=== PATIENT | male | born 1975 | race African-American/Black ===

== ENCOUNTER 2017-11-29 12:38 | Outpatient (CLI) | payer OTHER ==
--- NOTE | 2017-11-29 16:41 | MRI Report ---
EXAM: RIGHT KNEE MRI WITHOUT CONTRAST EXAM DATE: 11/29/2017 01:22 PM. CLINICAL HISTORY: Patellar tendinitis, right knee. COMPARISON: 04/03/2016. TECHNIQUE: Multiplanar, multisequence T1-weighted and fluid-sensitive sequences of the knee without c ontrast. Other: None. FINDINGS: Bones: No fractures or subluxations. No marrow edema. No bone lesions. Articular Cartilage: Unremarkable. Medial Meniscus: The medial meniscus is intact. Lateral Meniscus: The lateral meniscus is intact. Cruciate Ligaments: The anterior and posterior cruciate ligaments are intact. Collateral Ligaments: The medial collateral and lateral collateral ligamentous structures are intact. Tendons: As before, the proximal patellar tendon is abnormally thickened and shows some increased T2 signal. There is a focal area of calcification within the proximal lateral patellar tendon, similar t o previous. Some surrounding soft tissue swelling is also noted. Musculature: No edema or fatty atrophy. Other: No effusion. No popliteal cyst. No loose bodies. The medial and lateral retinacula are intact . Some subcutaneous thickening is seen over the anterior aspect of the lower patella. Some edema also is seen in Hoffa's fat pad. IMPRESSION: 1. Menisci, cruciates and collaterals appear unremarkable. 2. No significant cartilaginous defects. 3. As before, proximal patellar tendinitis is present, some calcification is seen in the proximal pat ellar tendon. The amount of surrounding inflammation in the adjacent soft tissues shows improvement s ramandeep the study from 2015. RADI MUSCULOSKELETAL RADIOLOGY SECTION Referring Provider Line: [phone] SITE ID: [id number]
== END 2017-11-29 12:39 | disposition home or self-care (01) ==
LOC: DI 12:38
PROVIDERS: ATTEND Orthopaedic Surgery
DX: M76.51 Patellar tendinitis, right knee (principal)

== ENCOUNTER 2019-10-16 14:42 | Outpatient (CLI) | payer OTHER ==
--- NOTE | 2019-10-16 16:10 | SLEEP CARE CONSULTATION ---
Information from patient questionnaire entered by Marcela Keenan. I have reviewed and concur with the information entered by Marcela Keenan. This document represents the service I personally performed and the decisions made by me, Perla Ramirez MD, [facility]. History of Present Illness Reason for Visit: New patient Chief Complaint: reports: Fatigue, Frequent awakenings at night Duration of Symptoms: 7 years Usual bedtime: 7:30 pm Time it takes to fall asleep: 2 hours Snores at night: Yes Observed to quit breathing while asleep: No Sleeps alone due to snoring: No Number of times waking at night: 3 Toss, Turn, or Twitch while sleeping: Yes Recalls having dreams: No Usually gets out of bed at: 5:30 am Feels refreshed in the morning: No Morning headache: No Sleepy or fatigued during the day: Yes Ever fallen asleep while driving: No Takes day naps: No Dreams during day naps: No Prior sleep studies: No Additional HPI information: I had the pleasure of seeing Mr. García today regarding the possibility of him having a sleep disorder. As you know, he is a 44 year old gentleman who complains of frequent awakenings, and persistent fatigue for the past 7 years. The patient tells me that he normally goes to bed around 7:30 pm, and it takes him approximately 2 hours to fall asleep. He tried a sleep aid for a month. He has been told that he snores loudly and irregularly at night. He has never been observed to stop breathing in his sleep. His can still sleep in the same bed. He can recall waking up on the average of 3 times during the night. Most of the time he wakes up because of no apparent reason. He has never awakened because of his own snoring, choking, or having to gasp for air. There is a lot of tossing and turning in his sleep. No somniloquy (sleep talking) or somnambulism (sleep walking). Generally there is no recollection of dreams. In the morning he usually gets up out of the bed around 5:30 a.m. not feeling refreshed nor rested. He usually does not have a morning headache. During the day he complains of feeling fatigued. His score on [place] Sleepiness Scale is 6 out of 24. He has never fallen asleep while driving nor has had any accident due to sleepiness. He usually does not take naps during the day. Upon falling asleep during the day he denies having vivid dreams. He has never had sleep paralysis, experienced cataplexy or symptoms of restless leg syndrome. He denies having impaired concentration during the day. - Parasomnia Symptoms Ever been unable to move upon waking from sleep: No Ever felt weak in the knees when startled or emotional: No Bothered by creepy, crawly, restless sensations in legs: No Problems with memory or concentration: No Subjective Initial [place] Sleepiness Scale score: 6 Past Medical History Past Medical History: reports: Hypertension Social History The patient's occupation is a [employer]. Patient is and lives in [place]. Have you smoked in the past 12 months: No Alcohol use: No Caffeine use: No Family History Family history of sleep disordered breathing: No Allergies and Home Medications Drug allergies reviewed: Yes (NKDA) Home medication list reviewed: Yes (lisinopril) Review of Systems Cardiovascular: reports: high blood pressure Respiratory: denies: shortness of breath, wheeze, sputum production, chronic cough, other Gastrointestinal: denies: heartburn, difficulty swallowing, nausea, vomitting, diarrhea, abdominal pain, other Urinary: denies: incontinence, frequency, urgency, impotence, other Neurological: denies: headaches, seizure, head trauma, disorientation, speech dysfunction, gait or balance problems, fainting or unconsciousness, other Psychiatric: denies: Attention Deficit Hyperactivity, anxiety, depression, mood disorder, claustrophobia, other Ear/Nose/Throat: denies: nasal congestion, sinus problems, nose bleeds, dry mouth/throat, hoarseness, injury to nose, tonsillectomy, wisdom teeth removed, other Endocrine: denies: thyroid disease, history of goiter, sluggishness, too hot or cold, excessive thirst, increased appetite, increased urination, unexplained weakness, other Musculoskeletal: denies: joint pain, neck pain, back pain, joint swelling, muscle pain or cramping, mobility problems, other Immunologic: denies: sneezing, rash, itching, allergies to food or environment, other Physical Exam Vital signs obtained and entered by: Physical exam was deferred due to the COVID-19 pandemic. Height: 6 ft Weight: 230 lb Body Mass Index: 31.1 BMI Classification: Obese Impression and Plan IMPRESSION: 1. Obstructive Sleep Apnea-Hypopnea Syndrome, as suggested by history of loud and irregular snoring, frequent awakenings during the night, unrefreshed sleep, and hypertension. Narrow oropharynx and obesity are common predisposing factors for obstructive sleep apnea-hypopnea syndrome. Pathophysiology of sleep- disordered breathing was discussed. I recommend proceeding to polysomnography t o confirm the diagnosis and to assess severity. If he has significant sleep disordered breathing, a manual CPAP titration study will also be performed to find the optimal treatment pressure. I informed the patient of what the sleep studies involve and after some discussion, he agreed to proceed. Plan: 1. Schedule an in-laboratory polysomnography 2. Avoid long distance driving or when feeling sleepy. 3. Avoid alcohol, sedative and muscle relaxant around bedtime. 4. Attempt to lose weight. 5. Return in 1 to 2 weeks after the study to discuss results and initiate t herapy. I spent 100% of this visit face to face with the patient with greater than 50% of this was spent time counseling the patient and coordination of care.
== END 2019-10-16 14:43 | disposition home or self-care (01) ==
LOC: SC 14:42
PROVIDERS: ATTEND Internal Medicine Pulmonary Disease
DX: R06.83 Snoring (principal); G47.8 Other sleep disorders; I10 Essential (primary) hypertension; E66.9 Obesity, unspecified; Z68.31 Body mass index [BMI] 31.0-31.9, adult
CPT/HCPCS: 99203; 99212

== ENCOUNTER 2019-10-26 19:32 | Outpatient (CLI) | payer OTHER | END 2019-10-26 19:33 | disposition home or self-care (01) | LOC: SC 19:32 | PROVIDERS: ATTEND Internal Medicine Pulmonary Disease | DX: G47.33 Obstructive sleep apnea (adult) (pediatric) (principal); E66.3 Overweight; Z68.31 Body mass index [BMI] 31.0-31.9, adult | CPT/HCPCS: 95810 ==

== ENCOUNTER 2019-11-06 16:54 | Outpatient (CLI) | payer OTHER ==
--- NOTE | 2019-11-06 13:34 | SLEEP CARE CONSULTATION ---
Information from patient questionnaire entered by Bri Anaya. I have reviewed and concur with the information entered by Bri Anaya. This document represents the service I personally performed and the decisions made by me, Perla Ramirez MD, [facility]. History of Present Illness Service Date and Time: 11/06/2019 1320 Initial [place] Sleepiness Scale score: 6 Additional HPI information: To minimize the risk of COVID-19 exposure, the patient has requested and consented to this video telemedicine visit. The patient also agrees to having his insurance billed. HPI: Mr. García was called for a follow up of the sleep study he had on 10/26/2019. The polysomnography showed that the patient had reduced sleep efficiency due to a prolonged awakening in the second half of the night. Despite moderate sleep fragmentation,, the sleep architecture was normal. Respiratory monitoring showed mild obstructive sleep apnea-hypopnea (AHI = 8.4) associated with frequent arousals, oxyhemoglobin desaturation and mild hypoxia (bhupinder oxygen saturation of 82%). The respiratory events occurred mainly during REM sleep. The patient did not sleep supine during this study (supine AHI = 0.0; non-supine = 8.44). Snore was moderate to loud in intensity. There was no significant periodic leg movement of sleep. Cardiac rhythm was normal sinus rhythm without significant arrhythmia. No abnormal behavior (parasomnia) observed during the night. The patient was informed of these findings. I explained to him the pathophysiology behind obstructive sleep apnea. We then spent quite a bit of time discussing different treatment options. For mild obstructive sleep apnea, surgery and oral appliance are alternatives to nasal CPAP therapy but in moderate or severe cases, nasal CPAP is the most effective and reliable treatment. Weight loss in an obese individual is strongly recommended. After some discussion, he opted to go with the nasal CPAP therapy. I explained to him how CPAP machine works and what to expect when using the machine. He is encouraged to use CPAP every night especially in the first 2 to 3 nights in order to get used to it. He should call his CPAP supplier or me to discuss any mechanical problem that may occur. If he snores or feels like he is not getting enough air from the machine, he should notify me and I will increase the pressure. Allergies and Home Medications Drug allergies reviewed: Yes Home medication list reviewed: Yes Review of Systems Review of systems same as previous: Yes Physical Exam Height: 6 ft Impression and Plan IMPRESSION: 1. Obstructive Sleep Apnea-Hypopnea Syndrome, mild, associated with mild hypoxemia and sleep fragmentation. Possibly, this is the cause of the patients symptoms of unrefreshed sleep, and excessive daytime sleepiness. As mentioned above, the patient will be started on an autoCPAP set at 5 - 15 cmH2O. Depending on his response and compliance he may be brought back for an overnight CPAP titration study (no studies are being performed due to COVID-19). PLAN: 1. Prescription made for an autoCPAP, heated humidifier, and related supplies. 2. Attempt to lose weight and avoid alcohol consumption near bedtime. 3. Return for follow up after one month on the CPAP. Visit Type: Telehealth Video Video Type: [place] Location of Provider: Home Patient agrees and consents to this telehealth visit type: Yes Time Spent with Patient (minutes): 15 Provider Statement: I spent 100% of the Telehealth Video Call with the patient with greater than 50% spent counseling the patient and coordination of care.
== END 2019-11-06 16:55 | disposition home or self-care (01) ==
LOC: SC 16:54
PROVIDERS: ATTEND Internal Medicine Pulmonary Disease
DX: G47.33 Obstructive sleep apnea (adult) (pediatric) (principal)
CPT/HCPCS: 99212; 99213

== ENCOUNTER 2020-01-24 09:20 | Outpatient (CLI) | payer OTHER ==
[2020-01-24 09:33] VITALS: BP 120/78
--- NOTE | 2020-01-24 09:33 | SLEEP CARE CONSULTATION ---
Information from patient questionnaire entered by Marcela Keenan. I have reviewed and concur with the information entered by Marcela Keenan. This document represents the service I personally performed and the decisions made by me, Nola Enamorado, RN, MSN, [employer]. History of Present Illness Service Date and Time: 01/24/2020919 Previous diagnosis: Mild, Obstructive Sleep Apnea-Hypopnea Syndrome AHI: 8.4 (in 2019) Reason for follow up: first compliance Equipment type: CPAP Equipment obtained from: Other ([facility]AP [facility]) Mask style: Nasal pillows Backup mask available: Yes (full face ) Last cushion change: no new supplies yet CPAP Compliance Data - Data Reviewed with Patient Average duration of nightly device use: 4.3 Compliance rate %: 90 Current pressure setting (cmH2O): 5-15 Humidity settin Heated hose settin Average residual AHI: 6.6 (90% pressure average 9.6cmH20) Central apnea: 1.0 Obstructive apnea: 1.1 Hypopnea: 4.5 Average large leak: 0 Subjective Patient concerns: reports: dry mouth, nose, throat ( mild mouth dryness about 2 times a week. ), other (has difficulty sleeping explained as cannot sleep longer periods than a few hours then wake up and can take 2 horus to return to sleep. He lies there trying-no pain or things on mind ). denies: aerophagia, mask discomfort, air blowing in eyes, mask leak noise, condensation in mask/hose, nasal congestion, epistaxis Observed to snore while using device: No Current pressure setting perceived as: comfortable On therapy, patient: reports: other (snoring resolved). denies: drowsiness while driving Initial [place] Sleepiness Scale score: 6 (in 2019) Current [place] Sleepiness Scale score: 6 Allergies and Home Medications Known drug allergies: No Home medication list reviewed: No (no changes noted ) Review of Systems Review of systems same as previous: Yes Physical Exam Blood Pressure: 120/78 Cuff size: long Heart Rate: 79 O2 Saturation: 97 Height: 6 ft Weight: 246 lb 9.6 oz (with boots and fatigues ) Body Mass Index: 33.4 BMI Classification: Obese Impression and Plan 1. Obstructive Sleep Apnea-Hypopnea Syndrome, mild, with good treatment compliance and mild elevation of residual AHI. On CPAP therapy, the patient has better sleep quality and is more rested overall. The patients pressure will be changed to autoCPAP 10-15 cmH20 For elevation of residual AHI. Patient advised to contact me if pressure change is uncomfortable so that it can be adjusted. Goals for apnea control discussed.Oral dryness can be reduced by adjusting humidity setting higher or heated hose lower or by adjusting both settings. Printed instructions given on how to change humidity and heated hose settings with rationale explaining why to change. Oral dryness can also be reduced by reducing mask leaks. Patient advised that if chronic oral dryness can affect dental health and advised to follow up with dentist and to see if oral dryness products beneficial. Patient's apnea severity and rationale for treatment to reduce apnea, improve sleep quality and reduce cardiovascular and cerebrovascular events was reviewed. I also reviewed the benefit of consistent device use of CPAP for hypertension, 2.Insomnia, unknown reason, reported chronic 10 years as difficulty maintaining sleep. Instead of staying in bed trying to go to sleep, he is advised to leave room and engage in quiet activity such as reading. He is also to stop looking at clock when he awakens as it can be alerting and instead to set alarm and cover clock. We talked about recognizing we all wake for positioning,noise and bathroom the garcia is to be able to fall back to sleep easily. Currently he is obtaining 4-5 hours sleep a night. The goal is to strive for a minimum of 7 as most people require 7-9 hours of sleep for optimal mental and physical function and less than 5-6 hours can increase health risks. It is hoped that with more sleep he will get more benefit from CPAP. A sleep diary will be completed. [facility] How to sleep better pamphlet given and reviewed. * * Changeauto CPAP pressure to 10-15 cmH2O * Implement methods to reduce insomnia and oral dryness * Sleep diaries - 2 weeks * Notify me if snoring with mask or feeling that the pressure is too much or too little * Attempt to lose weight * Call this office if any problems using CPAP * Return for follow up in 1-2 months , or sooner if concerns arise Visit Type: In Office Time Spent with Patient (minutes): 30 Provider Statement: I spent 100% of the Face to Face Visit with the patient with greater than 50% spent counseling the patient and coordination of care.
== END 2020-01-24 09:21 | disposition home or self-care (01) ==
LOC: SC 09:20
PROVIDERS: ATTEND Nurse Practitioner Family
DX: G47.33 Obstructive sleep apnea (adult) (pediatric) (principal); G47.00 Insomnia, unspecified; E66.9 Obesity, unspecified; Z68.33 Body mass index [BMI] 33.0-33.9, adult
CPT/HCPCS: 99212; 99214

== ENCOUNTER 2020-04-23 09:42 | Outpatient (CLI) | payer OTHER ==
[2020-04-23 11:33] VITALS: BP 136/84
--- NOTE | 2020-04-23 11:33 | SLEEP CARE CONSULTATION ---
Information from patient questionnaire entered by Marcela Keenan. I have reviewed and concur with the information entered by Marcela Keenan. This document represents the service I personally performed and the decisions made by me, Nola Enamorado, RN, MSN, [employer] SCIENCE TECHNICIAN. History of Present Illness Service Date and Time: 04/23/2020 0942 Previous diagnosis: Mild, Obstructive Sleep Apnea-Hypopnea Syndrome AHI: 8.4 (in 2019) Reason for follow up: other (2 month with pressure change) Equipment type: CPAP Equipment obtained from: Other ([facility] -) Mask style: Nasal pillows Backup mask available: No (keep current mask as spare when replaced) Last cushion change: 1 month ago Prior sleep studies: Yes Year and Where: 2019 - [facility] Type of Sleep Study: Polysomnography HPI additional information: Dryness symptoms resolved with adjustment of heated hose and humidity. He continues to have insomnia with difficulty going to sleep. He goes to bed at 8:30pm and it takes 1-2 hours to fall asleep. He wakes at 5am. He completed sleep diaries but forgot to bring. He tried to going to bed later and did fall asleep quicker but has gone back to his old schedule. He stopped looking at clock but did not cover face of clock. He thinks he getting 6 hours of sleep a night. He is feeling rested intermittently. Sleep Study - Results Prior sleep studies: No CPAP Compliance Data - Data Reviewed with Patient Average duration of nightly device use: 4.7 Compliance rate %: 83.3 (60 days) Current pressure setting (cmH2O): 10-15 Humidity settin Heated hose settin Average residual AHI: 5.0 Central apnea: 1.9 Obstructive apnea: 1.3 Hypopnea: 1.8 Average large leak: 0 Subjective Patient concerns: reports: other (takes off mask after wakes to go to bathroom as feels it may be harder to go back to sleep.). denies: aerophagia, mask discomfort, air blowing in eyes, mask leak noise, condensation in mask/hose, nasal congestion, dry mouth, nose, throat, epistaxis Observed to snore while using device: No Current pressure setting perceived as: comfortable On therapy, patient: reports: sleeping better, awakening more refreshed, being more awake and alert during the day, more rested overall. denies: drowsiness while driving Initial [place] Sleepiness Scale score: 6 (in 2020) Current [place] Sleepiness Scale score: 6 Allergies and Home Medications Known drug allergies: No Home medication list reviewed: Yes (no changes ) Review of Systems Review of systems same as previous: Yes (no changes ) Physical Exam Blood Pressure: 136/84 Cuff size: long Heart Rate: 73 O2 Saturation: 96 Height: 6 ft (fatigues and boots ) Weight: 251 lb 6.4 oz Body Mass Index: 34.0 BMI Classification: Obese Impression and Plan 1. Obstructive Sleep Apnea-Hypopnea Syndrome, mild , with good treatment compliance and apnea control. On CPAP therapy, the patient has better sleep quality and is more rested overall. The residual AHI has reduced from 6.6 to 5. Since patient is planning on losing weight, I will not adjust mask further. Currently patients BMI is 34 obesity class . Obesity increases the risk of apnea, CPAP pressure requirements and overall health risks especially cardiovascular and diabetes. Thus patient is advised to lose weight. The BMI chart was reviewed. The patient would like to reduce to 225pounds bringing their BMI down to about 30. I emphasized losing central obesity with rationale discussed. Patient encouraged to discuss their weight loss goals with their PCP and consider a referral to a pill packer. The patient's CPAP pressure range should accommodate some weight loss. Symptoms to report for additional pressure adjustment discussed. I also discussed how significant weight loss may reduce a pnea enough that retesting may be indicated. Supply schedule questions answered. 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 He states he will have electricity so a CPAP battery is not needed. Patient's apnea severity and rationale for treatment to reduce apnea, improve sleep quality and reduce cardiovascular and cerebrovascular events was reviewed. I also reviewed the benefit of consistent device use of CPAP for hypertension. In addition, he is advised to use CPAP with all sleep for maximum benefit of treatment. Thus he is to put mask back on after using bathroom. 2. Insomnia, patient reports chronic insomnia of difficulty falling asleep.He is again advised to complete sleep diary to see if any other concerns but will be unable to return until after deployment so this will be deferred. Until then, he is to go to bed at 9:30pm rather than 8:30pm unless really tired. It was stressed he is only to go to bed if sleepy. I counseled him how he was going to bed too early at 8:30pm with a 5am wake up time. Most people required 7-8 hours of sleep and his difficulty going to sleep for 1- 2 hours shows he does not require more sleep but less than allowed. He is also restart leaving bedroom if unable to sleep after about 20 minutes and engage in quiet activity such as reading until tired enough to go back to bed. This is to associate bed with sleep not frustration to get to sleep. To acclimate more to mask use, so he can more easily go back to sleep using CPAP, he is to try using CPAP while watching TV or reading for 30 minutes for the next 2 weeks to see if better. I also advised him to cover the clock so not to be tempted to look at it when he gets up to bathroom or changes position. Cover clock * Continue auto CPAP pressure at 10-15 cmH2O * Implement methods to reduce insomnia and improve mask acclimation * Notify me if snoring with mask or feeling that the pressure is too much or too little * Attempt to lose weight * Call this office if any problems using CPAP * Return for follow up in 6 months after deployment , or sooner if concerns arise Counseling Topics: Spare mask, Weight loss health impact, Discuss weight with PCP Visit Type: In Office Time Spent with Patient (minutes): 40 Provider Statement: I spent 100% of the Face to Face Visit with the patient with greater than 50% spent counseling the patient and coordination of care.
== END 2020-04-23 09:43 | disposition home or self-care (01) ==
LOC: SC 09:42
PROVIDERS: ATTEND Nurse Practitioner Family
DX: G47.33 Obstructive sleep apnea (adult) (pediatric) (principal); G47.00 Insomnia, unspecified; E66.9 Obesity, unspecified; Z68.34 Body mass index [BMI] 34.0-34.9, adult
CPT/HCPCS: 99212; 99215

== ENCOUNTER 2021-03-06 07:38 | Outpatient (CLI) | payer OTHER ==
--- NOTE | 2021-03-06 08:21 | SLEEP CARE CONSULTATION ---
Information from patient questionnaire entered by Bri Anaya. I have reviewed and concur with the information entered by Bri Anaya. This document represents the service I personally performed and the decisions made by , Yulisa Randle ARNP. History of Present Illness Service Date and Time: 03/06/2021 0738 Previous diagnosis: Mild, Obstructive Sleep Apnea-Hypopnea Syndrome AHI: 8.4 (in 2019) Reason for follow up: other (10 month) Equipment type: CPAP Equipment obtained from: [facility] Mask style: Nasal pillows Backup mask available: Yes (old mask) Last cushion change: will change tonight with new device Prior sleep studies: No Year and Where: 2019 - [facility] Type of Sleep Study: Polysomnography HPI additional information: LAURA VORA was diagnosed to have mild, AHI 9.8, obstructive sleep apnea- hypopnea syndrome and returned today for CPAP therapy 10 month follow-up. 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 He did not use due to supply issues. He stopped using device in December due to the recall on his device. He has since obtained a new device and supplies as of yesterday to start tonight. Subjective Missed days of use due to: reports: travel, other (supply issues and recall on device) Patient concerns: reports: other (NEW MACHINE DUE TO RECALL, trying to get the right adjustments). denies: aerophagia, mask discomfort, air blowing in eyes, mask leak noise, condensation in mask/hose, nasal congestion, dry mouth, nose, throat, epistaxis Observed to snore while using device: No Current pressure setting perceived as: comfortable On therapy, patient: reports: sleeping better, more rested overall. denies: drowsiness while driving Initial [place] Sleepiness Scale score: 6 (in 2019) Current [place] Sleepiness Scale score: 4 Allergies and Home Medications Home medication list reviewed: Yes (no changes) Review of Systems Review of systems same as previous: Yes (no changes) Physical Exam Heart Rate: 73 O2 Saturation: 96 Height: 6 ft (fatigues and boots ) Weight: 240 lb Body Mass Index: 32.5 BMI Classification: Obese Impression and Plan 1. Obstructive Sleep Apnea-Hypopnea Syndrome, mild, with poor treatment compliance and good apnea control. On CPAP therapy, the patient has better sleep quality and is more rested overall. Patient comes in because he stopped use of his device when he found out it was on recall. He was able to obtain a new CPAP device from his DME yesterday. Patient has already registered their device for the recall. Patient denies any black particles seen in machine or hoses, any unusual odors coming from device. Patient has not experienced any physical symptoms such as upper airway irritation, headache, skin or eye irritation, asthma, nausea/vomiting, difficulty breathing or chest pain. Patient informed that they may use an inline CPAP filter that they can obtain online to reduce chance of any particles being inhaled or ingested. We discussed thoroughly the health risks of not using the CPAP versus continuing use with the filter in [facility]. Compliance guidelines for new device and follow up discussed. Patient's apnea severity and rationale for treatment to reduce apnea, improve sleep quality and reduce cardiovascular and cerebrovascular events was reviewed. I also reviewed the benefit of consistent device use of CPAP for hypertension. Patient was encouraged to try to lose weight. * Continue auto CPAP pressure at 10-15 cmH2O * Notify me if snoring with mask or feeling that the pressure is too much or too little * Attempt to lose weight * Call this office if any problems using CPAP * Return for follow up one month after using new device, or sooner if concerns arise Counseling Topics: Spare mask, Weight loss health impact Visit Type: In Office Time Spent with Patient (minutes): 22 Provider Statement: I spent 100% of the Face to Face Visit with the patient with greater than 50% spent counseling the patient and coordination of care.
== END 2021-03-06 07:39 | disposition home or self-care (01) ==
LOC: SC 07:38
PROVIDERS: ATTEND Nurse Practitioner Family
DX: G47.33 Obstructive sleep apnea (adult) (pediatric) (principal); E66.9 Obesity, unspecified; Z68.32 Body mass index [BMI] 32.0-32.9, adult
CPT/HCPCS: 99212; 99213

== ENCOUNTER 2021-04-09 16:43 | Outpatient (CLI) | payer OTHER ==
--- NOTE | 2021-04-09 17:08 | SLEEP CARE CONSULTATION ---
Information from patient questionnaire entered by Yvette Phelan. I have reviewed and concur with the information entered by Yvette Phelan. This document represents the service I personally performed and the decisions made by , Yulisa Randle ARNP. History of Present Illness Service Date and Time: 04/09/2021 1643 Previous diagnosis: Mild, Obstructive Sleep Apnea-Hypopnea Syndrome AHI: 8.4 (in 2019) Reason for follow up: first compliance (Set up 03/05 with replacement device due to recall) Equipment type: CPAP Equipment obtained from: [facility] (getting supplies as needed) Mask style: Nasal pillows Backup mask available: Yes (old mask) Last cushion change: 1 week Prior sleep studies: No Year and Where: 2019 - [facility] Type of Sleep Study: Polysomnography HPI additional information: LAURA VORA was diagnosed to have mild, AHI 8.4, obstructive sleep apnea- hypopnea syndrome and returned today for CPAP therapy first compliance after updating device follow-up. CPAP Compliance Data - Data Reviewed with Patient Average duration of nightly device use: 7 hours 5 minutes Compliance rate %: 97 Current pressure setting (cmH2O): 5-20 Average residual AHI: 1.4 Average large leak: 0 sec Subjective Patient concerns: denies: aerophagia, mask discomfort, air blowing in eyes, mask leak noise, condensation in mask/hose, nasal congestion, dry mouth, nose, throat, epistaxis, other Observed to snore while using device: No Current pressure setting perceived as: comfortable On therapy, patient: reports: sleeping better, awakening more refreshed, being more awake and alert during the day, more rested overall. denies: drowsiness while driving Initial [place] Sleepiness Scale score: 6 (in 2019) Current [place] Sleepiness Scale score: 8 Allergies and Home Medications Home medication list reviewed: Yes (no changes) Review of Systems Review of systems same as previous: Yes (no changes) Physical Exam Heart Rate: 76 O2 Saturation: 96 Height: 6 ft (fatigues and boots ) Weight: 241 lb Body Mass Index: 32.6 BMI Classification: Obese Impression and Plan 1. Obstructive Sleep Apnea-Hypopnea Syndrome, mild, with fair treatment compliance and good apnea control. On CPAP therapy, the patient has better sleep quality and is more rested overall. Patient has been very satisfied with current CPAP therapy, new device and pressure is comfortable. He has no issue with using the CPAP. His pressure was changed back to 5-20 with his new device. I will adjust it back to the 10-15 cmH2O that was controlling his apneas well on his old machine. Patient's apnea severity and rationale for treatment to reduce apnea, improve sleep quality and reduce cardiovascular and cerebrovascular events was reviewed. I also reviewed the benefit of consistent device use of CPAP for hypertension. Patient was encouraged to lose weight for their overall health and to reduce apneas. * Change auto CPAP pressure at 10-15 cmH2O * Notify me if snoring with mask or feeling that the pressure is too much or too little * Attempt to lose weight * Call this office if any problems using CPAP * Return for follow up in 1 year, or sooner if concerns arise Counseling Topics: Spare mask, Weight loss health impact Visit Type: In Office Time Spent with Patient (minutes): 11 Provider Statement: I spent 100% of the Face to Face Visit with the patient with greater than 50% spent counseling the patient and coordination of care.
== END 2021-04-09 16:44 | disposition home or self-care (01) ==
LOC: SC 16:43
PROVIDERS: ATTEND Nurse Practitioner Family
DX: G47.33 Obstructive sleep apnea (adult) (pediatric) (principal); E66.9 Obesity, unspecified; Z68.32 Body mass index [BMI] 32.0-32.9, adult
CPT/HCPCS: 99212